=== PATIENT | male | born 1975 | race Caucasian/White ===

== ENCOUNTER 2021-08-03 16:16 | Emergency (ER) | payer BC, SELFPAY ==
[2021-08-03 16:27] VITALS: BP 132/72; PULSE 66; RESP 16; TEMP 37; O2SAT 98
--- NOTE | 2021-08-03 17:14 | ED.BACK ---
HPI - Back Pain/Injury General Chief Complaint: Back Pain/Injury Stated Complaint: back pain Source: patient and RN notes reviewed Limitations: no limitations History of Present Illness HPI Narrative: The patient, who works on a [employer], presents with low back pain. Patient states he has a least a week and a half, 10-day history of atraumatic low back pain that is mild, worse with motion, better at rest, continue occurred after overuse/gardening. It worsened today after manipulation by chiropractor. No numbness/weakness, bowel?bladder symptoms, hematuria/frequency/dysuria, radiating pain, no radiation except slightly downward to the gluteals. Patient advised not to use prescription medication while operating machinery, to follow-up with PMD Related Data Allergies Allergy/AdvReac Type Severity Reaction Status Date / Time No Known Allergies Allergy Unverified 08/03/21 16:33 Review of Systems Review of Systems: General/Constitutional: No weight loss,fever Eyes: N0: Redness,discharge Ears/Nose/Throat: No: Epistaxis,ear discharge Respiratory: Denies: Hemoptysis Gastrointestinal: No Vomiting, Bleeding-rectal Skin: No Lumps, eruption Neurologic: No Focal Weakness,Sz Hematologic: Denies: Petechiae/Purpura Psychiatric: No: Suicida ideationl All Other Systems: Reviewed and Negative PMFSH Comments At time of signature, agree with nursing past medical, surgical, social and family history. There is no relevant family history pertinent to the presenting complaint Exam Narrative: General Appearance: overweight/well nourished, Conjunctiva clear Mouth/Throat: Normal appearing, Normal lips, Supple Respiratory: Airway patent Abdomen: Soft Musculoskeletal: Normal strength (no footdrop, 5/5 : EH L-FHL, gastroc-AT, no saddle weakness) Spine/Back: Paraspinal muscle tender (with mild decreased range of motion; bilateral posterior superior iliac crests) Skin: Normal color, no sciatic notch tenderness Neurological: A&O x3, CN II-XII intact, Normal reflexes (symmetric, 2+ KJ, AJ) Psychiatric: Normal mood Course Vital Signs Vital signs: Vital Signs Temperature 98.6 F 08/03/21 16:27 Pulse Rate 66 08/03/21 16:27 Respiratory Rate 16 08/03/21 16:27 Blood Pressure 132/72 08/03/21 16:27 Pulse Oximetry 98 08/03/21 16:27 Temperature 98.6 F 08/03/21 16:27 Pulse Rate 66 08/03/21 16:27 Respiratory Rate 16 08/03/21 16:27 Blood Pressure 132/72 08/03/21 16:27 Pulse Oximetry 98 08/03/21 16:27 Discharge Plan Discharge Clinical Impression: Strain of lumbar region Qualifiers: Encounter type: initial encounter Qualified Code(s): S39.012A - Strain of muscle, fascia and tendon of lower back, initial encounter Patient Disposition: Home, Self-Care Condition: Stable Instructions: Lower Back Exercises (ED) Prescriptions: New acetaminophen-codeine 300-30 mg tablet 1 - 1.5 tablet PO HS PRN (Reason: pain) Qty: 14 RF: 0 prednisone 20 mg tablet 60 mg PO DAILY Qty: 15 RF: 0 tramadol 50 mg tablet 50 - 75 mg PO TID PRN (Reason: pain) Qty: 25 RF: 0 Follow-up/Referrals: Sewell,Markel Mc MD [Primary Care Provider] -
== END 2021-08-03 17:23 | disposition home or self-care (01) ==
PROVIDERS: Emergency Provider Emergency Medicine; PCP Internal Medicine
DX: S39.012A Strain of muscle, fascia and tendon of lower back, initial encounter (principal); X50.9XXA Other and unspecified overexertion or strenuous movements or postures, initial encounter; Y93.H2 Activity, gardening and landscaping
CPT/HCPCS: 99203; G0463